=== PATIENT | female | born 1945 | race Caucasian/White ===

== ENCOUNTER → 2017-08-02 | Day surgery (SDC) | payer MEDICARE, BC ==
[~2017-08-02] MED LIST: Lactated Ringers 1,000 ML IV SCH; Propofol 200 MG/20 ML SDV IV ONE
--- NOTE | 2017-08-02 13:55 | OR ---
DATE OF OPERATION: 08/02/2017 PREOPERATIVE DIAGNOSIS: POSITIVE COLOGUARD. POSTOPERATIVE DIAGNOSIS: POSITIVE COLOGUARD. SURGEON: Emerson Trevino MD PROCEDURE: FULL-LENGTH COLONOSCOPY WITH POLYP REMOVAL X3. ANESTHESIA: HEALTH INFORMATION INTERNSHIP due to morbid obesity. COMPLICATIONS: None. SPECIMEN: 1. Villous adenomas x2. 2. Hyperplastic polyp x1. FINDINGS: 1. Full-length colonoscopy. 2. Tortuous colon with marginal prep. 3. Mild sigmoid diverticulosis. 4. Villous adenoma x2, each less than 0.5 cm. 5. Small hyperplastic polyp, distal sigmoid colon. RECOMMENDATIONS: Followup colonoscopy in 3 years. INDICATIONS: The patient was in for physical, apparently had a positive Cologuard. She has not had a colonoscopy for many years. Dr. Valdez sent her for the procedure. DESCRIPTION OF PROCEDURE: The patient was prepped and draped, placed in the left lateral decubitus position. A lubricated Olympus colonoscope was inserted and ultimately advanced to the cecum. She has a very tortuous and difficult scope to pass, but we were able to get down into the cecal pouch, visualized the appendiceal orifice and the ileocecal valve. The bowel prep was marginal in certain spots. For the most part, she had a clean prep but she did have a lot of thicker stool in scattered areas throughout the right and sigmoid colon. Upon withdrawal, the patient's cecal pouch and ascending colon showed no gross abnormalities. She was very hard to see in the distal ascending colon as it was hard to hold the scope in this position and she did have a lot of stool present there, but no abnormalities were seen. The proximal, mid, transverse colon were unremarkable. In the distal portion of the transverse colon, the patient had 2 small flat villous adenomas well less than 0.5 cm. Each was removed in their entirety with cold forceps biopsy. The descending colon appeared benign. Sigmoid colon had more stooling than anywhere else. She did have a few scattered diverticula mild in severity. No gross abnormalities were seen. No vascular abnormalities or signs of colitis. The patient in the distal sigmoid did have 1 small flat hyperplastic-appearing polyp removed in its entirety with forceps. The rectosigmoid junction was benign. Rectal vault appeared unremarkable. Retroflexion of scope in the rectum showed no anal lesions. Air was then suctioned. Scope was removed without complication. ALIRIO/CHUCHO /[id number]
== END ==
LOC: CC.SDS 07:27
PROVIDERS: ATTEND Family Medicine
DX: Z12.11 Encounter for screening for malignant neoplasm of colon (principal); D12.3 Benign neoplasm of transverse colon; D12.5 Benign neoplasm of sigmoid colon; K57.30 Diverticulosis of large intestine without perforation or abscess without bleeding; I10 Essential (primary) hypertension; Z88.1 Allergy status to other antibiotic agents; Z88.2 Allergy status to sulfonamides; Z88.8 Allergy status to other drugs, medicaments and biological substances; Z79.82 Long term (current) use of aspirin; Z79.899 Other long term (current) drug therapy
CPT/HCPCS: 45380; J2704; J7120; 00810; 88305

== ENCOUNTER 2023-02-02 08:48 | Inpatient (IN) | payer MEDICARE, BC ==
[2023-02-02] MEDS ORDERED: Sodium Chloride 0.9% 1,000 ML IV ONE (09:01)
[2023-02-02 09:25] LABS: CHLORIDE,CL 107 mEq/L (98-106); SODIUM,NA 143 mEq/L (136-145)
[2023-02-02 09:27] LABS: ESTIMATED GFR 18 mL/min (>=60)
[2023-02-02 09:46] LABS: RESPIRATORY SYNCYTIAL VIR NAA NEGATIVE (NEGATIVE)
[2023-02-02 09:47] LABS: CORONAVIRUS COVID-19 NAA POSITIVE (NEGATIVE)
[2023-02-02] MEDS ORDERED: Ondansetron 4 MG Tab.DIS PO PRN (10:39)
[2023-02-02] MEDS ORDERED: Docusate Sodium 100 MG Cap PO PRN (10:39)
[2023-02-02] MEDS ORDERED: Polyethylene Glycol 3350 Powder 17 GM Packet PO PRN (10:39)
[2023-02-02] MEDS ORDERED: Ondansetron 4 MG/2 ML SDV IV PRN (10:39)
[2023-02-02] MEDS: Acetaminophen 325 MG Tab PO PRN ×2 (11:34→19:23)
[2023-02-02] MEDS: RIVAROXABAN 10 MG PO SCH (15:41)
[2023-02-02] MEDS: Potassium Chloride 10 MEQ Tab.ER PO SCH (17:35)
[2023-02-02] MEDS: Insulin Glarg,Human.Rec.Analog 100 Unit/ML SUBCUT SCH (20:18)
[2023-02-03] MEDS: Acetaminophen 325 MG Tab PO PRN ×2 (04:56→16:21)
[2023-02-03] MEDS: Estradiol 1 MG Tab PO SCH (07:35)
[2023-02-03] MEDS: Ferrous Sulfate 324 MG Tab.EC PO SCH (07:36)
[2023-02-03] MEDS: Folic Acid 1 MG Tab PO SCH (07:36)
[2023-02-03] MEDS: RIVAROXABAN 10 MG PO SCH (07:37)
[2023-02-03] MEDS: Potassium Chloride 10 MEQ Tab.ER PO SCH ×2 (07:38→16:54)
[2023-02-03] MEDS: Torsemide 20 MG Tab PO SCH (07:53)
[2023-02-03] MEDS: Chlorthalidone 25 MG Tab PO SCH (07:54)
[2023-02-03] MEDS ORDERED: Non-Formulary Medication 1 Each (Ferrous Gluconate [Ferrous Gluconate] 324 MG Tablet) PO SCH (08:00)
[2023-02-03] MEDS: Atenolol 50 MG Tab PO SCH (08:18)
[2023-02-03] MEDS: Insulin Glarg,Human.Rec.Analog 100 Unit/ML SUBCUT SCH (20:16)
[2023-02-04] MEDS: Acetaminophen 325 MG Tab PO PRN ×3 (01:20→22:44)
[2023-02-04] MEDS: Chlorthalidone 25 MG Tab PO SCH (08:14)
[2023-02-04] MEDS: Torsemide 20 MG Tab PO SCH (08:16)
[2023-02-04] MEDS: Estradiol 1 MG Tab PO SCH (08:16)
[2023-02-04] MEDS: Folic Acid 1 MG Tab PO SCH (08:17)
[2023-02-04] MEDS: Ferrous Sulfate 324 MG Tab.EC PO SCH (08:17)
[2023-02-04] MEDS: Atenolol 50 MG Tab PO SCH (08:18)
[2023-02-04] MEDS: Potassium Chloride 10 MEQ Tab.ER PO SCH ×2 (08:19→16:53)
[2023-02-04] MEDS ORDERED: Sodium Chloride 0.9% 1,000 ML IV STA (09:20)
[2023-02-04] MEDS: RIVAROXABAN 10 MG PO SCH (09:41)
[2023-02-04] MEDS: Insulin Glarg,Human.Rec.Analog 100 Unit/ML SUBCUT SCH (19:45)
[2023-02-04] MEDS: Loperamide 2 MG Cap PO PRN (22:44)
[2023-02-05] MEDS: RIVAROXABAN 10 MG PO SCH (08:03)
[2023-02-05] MEDS: Torsemide 20 MG Tab PO SCH (08:03)
[2023-02-05] MEDS: Folic Acid 1 MG Tab PO SCH (08:04)
[2023-02-05] MEDS: Ferrous Sulfate 324 MG Tab.EC PO SCH (08:04)
[2023-02-05] MEDS: Estradiol 1 MG Tab PO SCH (08:04)
[2023-02-05] MEDS: Chlorthalidone 25 MG Tab PO SCH (08:08)
[2023-02-05] MEDS: Potassium Chloride 10 MEQ Tab.ER PO SCH (08:10)
[2023-02-05] MEDS: Atenolol 50 MG Tab PO SCH (08:45)
[2023-02-05] MEDS: Loperamide 2 MG Cap PO PRN (10:28)
== END 2023-02-05 12:00 | disposition swing bed (61) | DRG 682 ==
LOC: CC.ED 08:48 → CC.MS 10:18 → UNDODISIN 02-05 10:35
PROVIDERS: ADMIT Nurse Practitioner Family; ATTEND Nurse Practitioner Family
DX: N17.9 Acute kidney failure, unspecified (principal); U07.1 COVID-19; E11.9 Type 2 diabetes mellitus without complications; E66.9 Obesity, unspecified; E86.0 Dehydration; I11.0 Hypertensive heart disease with heart failure; I50.9 Heart failure, unspecified; D50.9 Iron deficiency anemia, unspecified; Z68.35 Body mass index [BMI] 35.0-35.9, adult; Z79.899 Other long term (current) drug therapy; Z79.4 Long term (current) use of insulin; Z88.8 Allergy status to other drugs, medicaments and biological substances; Z88.2 Allergy status to sulfonamides; Z88.0 Allergy status to penicillin
CPT/HCPCS: 0241U; 36415; 71046; 80053; 81001; 82150; 82272; 82947; 83690; 84484; 85025; 96360; 97161-GP; 99223; 99232; 99233; 99238; 99285-25; A9270-GY; J1815-GY; J7030

== ENCOUNTER 2023-02-05 10:45 | Inpatient (IN) | payer MEDICARE, BC ==
[2023-02-05] MEDS ORDERED: Docusate Sodium 100 MG Cap PO PRN (12:25)
[2023-02-05] MEDS ORDERED: Polyethylene Glycol 3350 Powder 17 GM Packet PO PRN (12:25)
[2023-02-05] MEDS ORDERED: Ondansetron 4 MG/2 ML SDV IV PRN (12:25)
[2023-02-05] MEDS ORDERED: 50% Dextrose in Water 50 ML Syringe IVPUSH PRN (12:25)
[2023-02-05] MEDS ORDERED: Acetaminophen 325 MG Tab PO PRN (12:25)
[2023-02-05] MEDS ORDERED: Glucagon,Human Recombinant 1 MG Vial IM PRN (12:25)
[2023-02-05] MEDS: Potassium Chloride 10 MEQ Tab.ER PO SCH (17:34)
[2023-02-05] MEDS: Insulin Glarg,Human.Rec.Analog 100 Unit/ML SUBCUT SCH (19:57)
[2023-02-06] MEDS: Ondansetron 4 MG Tab.DIS PO PRN ×2 (07:47→21:04)
[2023-02-06] MEDS: Folic Acid 1 MG Tab PO SCH (07:48)
[2023-02-06] MEDS: Atenolol 50 MG Tab PO SCH (07:48)
[2023-02-06] MEDS: RIVAROXABAN 10 MG PO SCH (07:48)
[2023-02-06] MEDS: Potassium Chloride 10 MEQ Tab.ER PO SCH ×2 (07:49→17:33)
[2023-02-06] MEDS: Ferrous Sulfate 324 MG Tab.EC PO SCH (07:49)
[2023-02-06] MEDS: Torsemide 20 MG Tab PO SCH (07:49)
[2023-02-06] MEDS: Estradiol 1 MG Tab PO SCH (07:50)
[2023-02-06] MEDS: Chlorthalidone 25 MG Tab PO SCH (07:51)
[2023-02-06] MEDS: Insulin Glarg,Human.Rec.Analog 100 Unit/ML SUBCUT SCH (20:56)
[2023-02-07] MEDS: Ferrous Sulfate 324 MG Tab.EC PO SCH (07:52)
[2023-02-07] MEDS: Folic Acid 1 MG Tab PO SCH (07:52)
[2023-02-07] MEDS: Torsemide 20 MG Tab PO SCH (07:52)
[2023-02-07] MEDS: Estradiol 1 MG Tab PO SCH (07:52)
[2023-02-07] MEDS: RIVAROXABAN 10 MG PO SCH (07:54)
[2023-02-07] MEDS: Potassium Chloride 10 MEQ Tab.ER PO SCH ×2 (07:56→17:43)
[2023-02-07] MEDS: Atenolol 50 MG Tab PO SCH (08:12)
[2023-02-07] MEDS: Chlorthalidone 25 MG Tab PO SCH (08:15)
[2023-02-07] MEDS: Insulin Glarg,Human.Rec.Analog 100 Unit/ML SUBCUT SCH (19:46)
[2023-02-07] MEDS: Loperamide 2 MG Cap PO PRN (19:50)
[2023-02-08] MEDS: Estradiol 1 MG Tab PO SCH (09:22)
[2023-02-08] MEDS: Torsemide 20 MG Tab PO SCH (09:22)
[2023-02-08] MEDS: Chlorthalidone 25 MG Tab PO SCH (09:23)
[2023-02-08] MEDS: Ferrous Sulfate 324 MG Tab.EC PO SCH (09:23)
[2023-02-08] MEDS: Folic Acid 1 MG Tab PO SCH (09:24)
[2023-02-08] MEDS: Potassium Chloride 10 MEQ Tab.ER PO SCH (09:25)
[2023-02-08] MEDS: Atenolol 50 MG Tab PO SCH (09:27)
[2023-02-08] MEDS: RIVAROXABAN 10 MG PO SCH (09:27)
[2023-02-08] MEDS: Loperamide 2 MG Cap PO PRN (13:08)
== END 2023-02-08 14:34 | disposition home health service (06) | DRG 948 ==
LOC: CC.MS 10:45 → UNDOADMIN 10:45 → CC.MS 12:23 → UNDOADMIN 12:23 → CC.MS 12:25
PROVIDERS: ADMIT Nurse Practitioner Family; ATTEND Nurse Practitioner Family
DX: R53.81 Other malaise (principal); Z79.899 Other long term (current) drug therapy
CPT/HCPCS: 82947; 97110-GP; A9270-GY